=== PATIENT | female | born 1995 | race Caucasian/White ===

== ENCOUNTER 2017-03-30 13:40 | Emergency (ER) | payer BC ==
[~2017-03-30] VITALS: Ht 167.6 cm; Wt 59.0 kg
[2017-03-30 13:46] VITALS: BP 110/55; PULSE 69; RESP 17; TEMP 97.7; O2SAT 99
--- NOTE | 2017-03-30 13:55 | PD ---
HPI Chief Complaint: syncope Time Seen by Provider: 13:55 Travel History International Travel<30 days: No Contact w/Intl Traveler<30days: No Traveled to known affect area: No History of Present Illness HPI 21-year-old female with no significant medical history presents to emergency department following a syncopal episode after smoking marijuana today. Patient states that she typically does not smoke marijuana. States that she did not eat her normal breakfast or drink as much water she usually does. She was with friends smoking this marijuana when she felt lightheaded and passed out. It was brief and witnessed. Patient did not strike her head. Patient at this time denies any chest pain or tightness. Denies any focal deficits or weakness. States that she feels tired. Denies any chance of . Last menstrual cycle was 2 weeks ago. She has no other symptoms to report. [facility] Past Medical History Medical History: Denies Significant Hx Social History Tobacco Use: No Substance Use: Yes Allergies-Medications (Allergen,Severity, Reaction): Coded Allergies: No Known Allergies (Unverified , 03/30/17) Reported Meds & Prescriptions Reported Meds & Active Scripts Active No Active Prescriptions or Reported Medications Review of Systems Except as stated in HPI: all other systems reviewed are Neg Physical Exam Narrative GENERAL: Well-nourished female patient, in no acute distress SKIN: Focused skin assessment warm/dry. HEAD: Atraumatic. Normocephalic. EYES: Pupils equal and round. EOMI. No scleral icterus. No injection or drainage. ENT: No nasal bleeding or discharge. Mucous membranes pink and moist. NECK: Trachea midline. No JVD. CARDIOVASCULAR: Regular rate and rhythm. No murmur appreciated. RESPIRATORY: No accessory muscle use. Clear to auscultation. Breath sounds equal bilaterally. GASTROINTESTINAL: Abdomen soft, non-tender, nondistended. Hepatic and splenic margins not palpable. MUSCULOSKELETAL: No obvious deformities. No clubbing. No cyanosis. No edema. NEUROLOGICAL: Awake and alert. No obvious cranial nerve deficits. Motor grossly within normal limits. Normal speech. PSYCHIATRIC: Appropriate mood and affect; Data Data Last Documented VS Vital Signs Date Time Temp Pulse Resp B/P Pulse Ox O2 Delivery O2 Flow Rate FiO2 03/30/17 16:33 97.8 77 16 122/81 99 03/30/17 15:10 Room Air Orders Electrocardiogram (03/30/17 13:57) Basic Metabolic Panel (Bmp) (03/30/17 13:57) Ed Urine Pregnancytest Poc (03/30/17 13:57) Complete Blood Count With Diff (03/30/17 13:57) Magnesium (Mg) (03/30/17 13:57) Ckmb (Isoenzyme) Profile (03/30/17 13:57) Urinalysis - C+S If Indicated (03/30/17 13:57) Blood Glucose (03/30/17 13:57) Ecg Monitoring (03/30/17 13:57) Iv Access Insert/Monitor (03/30/17 13:57) Oximetry (03/30/17 13:57) Sodium Chlor 0.9% 1000 Ml Inj (Ns 1000 M (03/30/17 13:57) Orthostatic Vital Signs (03/30/17 14:45) Sodium Chlor 0.9% 1000 Ml Inj (Ns 1000 M (03/30/17 15:00) Labs Laboratory Tests Test 03/30/17 03/30/17 13:15 14:00 Urine Color YELLOW Urine Turbidity CLEAR Urine pH 6.0 Urine Specific Lolo 1.007 Urine Protein NEG mg/dL Urine Glucose (UA) NEG mg/dL Urine Ketones NEG mg/dL Urine Occult Blood NEG Urine Nitrite NEG Urine Bilirubin NEG Urine Urobilinogen LESS THAN 2.0 MG/DL Urine Leukocyte Esterase NEG Urine RBC 1 /hpf Urine WBC 1 /hpf Urine Squamous Epithelial 2 /hpf Cells Urine Amorphous Sediment RARE Urine Bacteria RARE /hpf Microscopic Urinalysis Comment CULT NOT INDICATED White Blood Count 6.7 TH/MM3 Red Blood Count 4.41 MIL/MM3 Hemoglobin 12.8 GM/DL Hematocrit 38.8 % Mean Corpuscular Volume 88.0 FL Mean Corpuscular Hemoglobin 28.9 PG Mean Corpuscular Hemoglobin 32.9 % Concent Red Cell Distribution Width 12.4 % Platelet Count 168 TH/MM3 Mean Platelet Volume 9.6 FL Neutrophils (%) (Auto) 67.1 % Lymphocytes (%) (Auto) 20.5 % Monocytes (%) (Auto) 10.7 % Eosinophils (%) (Auto) 1.4 % Basophils (%) (Auto) 0.3 % Neutrophils # (Auto) 4.5 TH/MM3 Lymphocytes # (Auto) 1.4 TH/MM3 Monocytes # (Auto) 0.7 TH/MM3 Eosinophils # (Auto) 0.1 TH/MM3 Basophils # (Auto) 0.0 TH/MM3 CBC Comment DIFF FINAL Differential Comment Sodium Level 143 MEQ/L Potassium Level 3.9 MEQ/L Chloride Level 108 MEQ/L Carbon Dioxide Level 27.7 MEQ/L Anion Gap 7 MEQ/L Blood Urea Nitrogen 12 MG/DL Creatinine 0.79 MG/DL Estimat Glomerular Filtration 93 ML/MIN Rate Random Glucose 93 MG/DL Calcium Level 8.1 MG/DL Magnesium Level 1.6 MG/DL Total Creatine Kinase 42 U/L MDM Medical Decision Making Medical Screen Exam Complete: Yes Emergency Medical Condition: Yes Medical Record Reviewed: Yes Differential Diagnosis Vasovagal syncope versus substance abuse versus dehydration versus electrolyte abnormality Narrative Course 21 year-old female presents to emergency department following a syncopal episode. She appears well and without distress. Neuro exam is nonfocal. EKG is normal sinus rhythm, reviewed by my attending physician CBC and BMP are without acute concern. Urinalysis is unremarkable. I discussed the patient my attending physician. After 2 L of normal saline fluid, the patient verbalizes "feeling much better." She'll be discharged at this time. She is counseled on substance abuse. She agrees to return immediately with any acute worsening symptoms. Diagnosis Primary Impression: Episode of syncope Qualified Code: R55 - Syncope, unspecified syncope type Additional Impression: Marijuana abuse Referrals: Primary Care Physician Patient Instructions: General Instructions, Medical Clearance for Substance Abuse Treatment (ED) Additional Instructions: Maintain adequate oral hydration Follow-up the primary care provider Return immediately with any acute worsening of symptoms Med/Other Pt SpecificInfo: No Change to Meds Scripts No Active Prescriptions or Reported Meds Disposition: 01 DISCHARGE HOME Condition: Stable RodgersChioma piña RUBIA Mar 30, 2017 13:55
[2017-03-30] MEDS ORDERED: SODIUM CHLOR 0.9% 1000 ML INJ 1,000 ML IV ONE ×2 (13:57→15:00)
[2017-03-30 13:58] VITALS: RESP 17; O2SAT 99
[2017-03-30 14:33] LABS: AUTOMATED NEUTROPHIL # 4.5 TH/MM3 (1.8-7.7); BASOPHIL % 0.3 % (0.0-2.0); EOSINOPHIL # 0.1 TH/MM3 (0-0.4); EOSINOPHIL % 1.4 % (0.0-4.0); HEMATOCRIT 38.8 % (35.0-46.0); HEMO FLAGS DIFF FINAL; LYMPH % 20.5 % (9.0-44.0); LYMPHOCYTE # 1.4 TH/MM3 (1.0-4.8); MEAN CORPUSCULAR HEMOGLOBIN 28.9 PG (27.0-34.0); MEAN CORPUSCULAR HGB CONC 32.9 % (32.0-36.0); MONO % 10.7 % (0.0-8.0); NEUT % 67.1 % (16.0-70.0); PLATELET COUNT 168 TH/MM3 (150-450); RED BLOOD COUNT 4.41 MIL/MM3 (4.00-5.30); RED CELL DISTRIBUTION WIDTH 12.4 % (11.6-17.2); WHITE BLOOD COUNT 6.7 TH/MM3 (4.0-11.0)
[2017-03-30 15:10] VITALS: BP_SYST 106; BP_SYST 111; BP_SYST 120; BP_DIAS 58; BP_DIAS 60; BP_DIAS 67; PULSE 76; RESP 16; RESP 17; TEMP 97.7; O2SAT 99
[2017-03-30 15:17] LABS: BICARBONATE 27.7 MEQ/L (21.0-32.0); MAGNESIUM 1.6 MG/DL (1.5-2.5); POTASSIUM 3.9 MEQ/L (3.5-5.1)
[2017-03-30 15:46] LABS: BACTERIA, URINE RARE /hpf; BLOOD, URINE NEG (NEG); GLUCOSE,URINE NEG (NEG); KETONE, URINE NEG (NEG); NITRITE,URINE NEG (NEG); SQUAMOUS EPITHELIAL CELL URINE 2 /hpf (0-5); URINE COLOR YELLOW (YELLW/STRAW)
[2017-03-30 15:50] LABS: COMMENT (UR) CULT NOT INDICATED; CULTURE IF INDICATED CULT NOT INDICATED
[2017-03-30 16:33] VITALS: BP 122/81; TEMP 97.8
--- NOTE | 2017-03-31 19:51 | EKG ---
Date Performed: 03/30/2017 Time Performed: 14:15:11 PTAGE: 21 years EKG: Sinus rhythm LOW QRS VOLTAGE IN PRECORDIAL LEADS BORDERLINE ECG NO PREVIOUS TRACING DOCTOR: Geo Frank Interpretating Date/Time 03/31/2017 19:49:52
== END 2017-03-30 16:33 | disposition home or self-care (01) ==
LOC: NEPE 13:40
DX: R55 Syncope and collapse (principal); F12.10 Cannabis abuse, uncomplicated
CPT/HCPCS: 80048; 81001; 82550; 83735; 84703; 85025; 93005; 96360; 96361; 99284; J7030